=== PATIENT | male | born 1990 | race Caucasian/White ===

== ENCOUNTER 2025-03-08 13:59 | Emergency (ER) | payer OTHER ==
[~2025-03-08] VITALS: Ht 177.8 cm; Wt 78.0 kg
[2025-03-08] MEDS: NALOXONE HCL 1MG/ML 2ML VIAL ONE (14:05)
[2025-03-08] MEDS: SUCCINYLCHOLINE CHLORIDE 200MG/10ML IV ONE (14:12)
[2025-03-08] MEDS: ETOMIDATE 2MG/ML 10ML VIAL IV ONE (14:12)
[2025-03-08 14:13] VITALS: PULSE 78; RESP 22; O2SAT 99
[2025-03-08] MEDS ORDERED: FENTANYL 2500MCG/250ML PMX 250 ML IV SCH (14:15)
[2025-03-08 14:38] VITALS: O2SAT 97
[2025-03-08] MEDS: PROPOFOL 10MG/ML 100ML 100 ML IV SCH (14:38)
[2025-03-08] MEDS ORDERED: FENTANYL CITRATE 2,500 MCG in SODIUM CHLORIDE 0.9% 200 ML IV PRN (14:45)
[2025-03-08 15:22] LABS: CREATININE 0.8 mg/dL (0.6-1.3); UREA NITROGEN BLOOD 9 mg/dL (9-23)
[2025-03-08 15:24] LABS: ASPARTATE AMINOTRANSFERASE 21 IU/L (<34); BILIRUBIN DIRECT < 0.1 mg/dL (<=3.0); TROPONIN I HIGH SENSITIVITY < 4 ng/L (3.0-53)
[2025-03-08 15:25] LABS: BILIRUBIN TOTAL 0.4 mg/dL (0.1-1.0); PROTEIN TOTAL 7.7 g/dL (6.0-8.3)
[2025-03-08] MEDS: SODIUM CHLORIDE 0.9% 1,000 ML IV ONE (15:28)
[2025-03-08] MEDS: FENTANYL CITRATE 2,500 MCG in SODIUM CHLORIDE 0.9% 200 ML IV PRN (15:28)
[2025-03-08 15:31] LABS: HEMATOCRIT. 42.0 % (42.0-52.0); HEMOGLOBIN. 14.3 g/dL (14.0-18.0); MEAN PLATELET VOLUME 8.6 fl (7.4-10.4); PLATELET 243 x1000/uL (130-400); RED BLOOD CELL COUNT 4.70 mill/uL (4.7-6.1); RED CELL DISTRIBUTION WIDTH 13.3 % (11.6-14.6)
[2025-03-08 15:34] LABS: BG BASE EXCESS -3.3 mmol/L (-2.0-3.0); BG CARBOXYHEMOGLOBIN 0.5 % (0.5-1.5); BG DEOXYHEMOGLOBIN 0.3 % (0.0-5.0); BG FRACTION INSPIRED OXYGEN 100; BG HCO3 ACT 22.8 mmol/L (21.0-28.0); BG METHEMOGLOBIN 0.4 % (0.5-1.5); BG OXYGEN SATURATION 99.7 % (94.0-98.0); BG OXYHEMOGLOBIN 98.8 % (94.0-98.0); BG PCO2 44.8 mmHg (35.0-48.0); BG PEEP (cmH2O) 5.0 cmH2O; BG PH 7.325 (7.350-7.450); BG PO2 401.7 mmHg (83.0-108.0); BG SAMPLE SITE RIGHT RADIAL; BG TIDAL VOLUME(mL) 400.0 mL; BG TOTAL HEMOGLOBIN 14.1 g/dL (13.5-17.5); BG VENT MODE VENT - AC; BG VENT RATE 16.0 set
[2025-03-08 15:43] LABS: INR 1.0
[2025-03-08] MEDS ORDERED: DEXTROSE 50% WATER 50ML SYRINGE IV PRN (16:30)
[2025-03-08] MEDS: BLOOD SUGAR DIAGNOSTIC STRIP TEST SCH (16:30)
[2025-03-08] MEDS ORDERED: ONDANSETRON HCL 4MG/2ML INJ IV PRN (16:30)
[2025-03-08] MEDS ORDERED: IPRATROPIUM/ALBUTEROL 0.5-3(2.5)MG/3ML NEB HHN PRN (16:30)
[2025-03-08] MEDS ORDERED: ACETAMINOPHEN 325MG TABLET PO PRN ×2 (16:30)
[2025-03-08] MEDS ORDERED: CLONIDINE 0.1MG TABLET PO PRN (16:30)
[2025-03-08 16:31] VITALS: PULSE 65; RESP 19; O2SAT 99
[2025-03-08 16:40] VITALS: PULSE 76; O2SAT 98
[2025-03-08 17:44] VITALS: BP 134/88; PULSE 88; RESP 20; O2SAT 97
[2025-03-08 17:49] LABS: EOSINOPHILS % MANUAL 12.0 % (0.0-5.0); LYMPHOCYTES % MANUAL 34.0 % (20.0-50.0); MONOCYTES % MANUAL 7.0 % (2.0-8.0); NEUTROPHILS % MANUAL 47.0 % (45.0-75.0); PLATELET ESTIMATE NORMAL
[2025-03-08 20:08] LABS: PHOSPHORUS 4.0 mg/dL (2.5-4.9)
[2025-03-09] MEDS ORDERED: PANTOPRAZOLE SODIUM 40 MG/VIAL IV SCH (09:00)
== END 2025-03-08 17:54 | disposition left against medical advice (07) ==
LOC: ER 14:24 → EDBEDREQ 15:47 → EDBEDREQTM 15:47 → CANBEDREQ 17:00 → ER 17:54
DX: T40.2X1A Poisoning by other opioids, accidental (unintentional), initial encounter (principal); E11.9 Type 2 diabetes mellitus without complications; J96.01 Acute respiratory failure with hypoxia; Z79.899 Other long term (current) drug therapy; Z98.890 Other specified postprocedural states; X58.XXXA Exposure to other specified factors, initial encounter; Y93.89 Activity, other specified; Y92.89 Other specified places as the place of occurrence of the external cause; Y99.8 Other external cause status
CPT/HCPCS: 80076; 80048; 80320; 82550; 82962; 83036; 83690; 83735; 84100; 85025; 85610; 85730; 84484; 36415; 71045; 82805; 82375; 31500; 94664; 93005; 94070; 98960; 96365; 96375; 99291; 36600; J2312; J2704; J7030; Z7610 ×5; A4615; 94002; J3010; G0480